=== PATIENT | male | born 1965 | race Caucasian/White ===

== ENCOUNTER 2017-07-18 13:06 | Day surgery (SDC) | payer OTHER ==
[2017-07-14 18:01] VITALS: BMI 31.0
[~2017-07-18 13:06] MED LIST: LACTATED RINGERS 1,000 ML IV SCH
[2017-07-18 13:24] VITALS: TEMP 97
[2017-07-18] MEDS ORDERED: LIDOCAINE 1% 20 ML VIAL (10MG/ML) FOR IV START INTRADERMA ONE (13:30)
[2017-07-18] MEDS ORDERED: PROPOFOL 10 MG/ML 20 ML VIAL IV ONE (14:27)
--- NOTE | 2017-07-18 14:54 | P.PCN ---
Date of Procedure: 07/18/17 Procedure(s) Performed: Procedure: Colonoscopy and polypectomy. Preoperative diagnosis: Screening for neoplasia. Postoperative diagnosis: Small cecal polyp snared but no large polyps or cancer. Preparation: HalfLytely prep. Sedation: Was provided by anesthesia. Brief clinical history: The patient is a 52-year-old male who is referred for this evaluation for screening for neoplasia age being his risk factor. There is no family history of colon cancer. The patient has no abdominal complaints, bleeding or anemia. This would be his first colonoscopy. Procedure: With the patient on his left lateral decubitus position and after informed consent and adequate sedation, the perianal area was inspected and it did not show any fissures or fistulas. There were no masses felt on digital rectal examination. The Olympus CFQ 160L video colonoscope was then inserted in the rectum in the usual fashion and advanced to the cecum. There was a small polyp in the cecum which I snared and retrieved by suction, otherwise, the exam was normal with no other polyps or tumors or any obvious diverticular disease or other pathology. I retroflexed the endoscope in the rectum before the endoscope was withdrawn. The patient tolerated the procedure well. Plan: The patient was reassured. He will follow up with you as planned and I recommended repeat exam in 5 years.
[2017-07-18 14:55] VITALS: RESP 18
[2017-07-18 15:28] VITALS: BP 142/84; PULSE 56
== END 2017-07-18 15:32 | disposition home or self-care (01) ==
LOC: ORWHC2ENDO 13:06
DX: Z12.11 Encounter for screening for malignant neoplasm of colon (principal); K63.5 Polyp of colon
CPT/HCPCS: 88305; 45385; J2704

== ENCOUNTER → 2020-11-28 | Outpatient (CLI) | payer OTHER ==
--- NOTE | 2020-11-28 23:39 | MR ---
EXAMINATION TYPE: MR shoulder RT wo con DATE OF EXAM: 11/28/2020 COMPARISON: None HISTORY: Rt shoulder pain and numbness in fingers x8 months Multiplanar multiecho imaging of the right shoulder was performed without contrast. Subscapularis tendon is intact. Biceps tendon appears normal. There is minor spurring at the anterior glenoid labrum. Posterior labrum appears intact. There is moderate spurring at the AC joint with todd e edema and fluid accumulation in the joint space. There is mild impingement upon the supraspinatus m uscle. There is some increased signal within the supraspinatus tendon over the greater tuberosity of the hum erus. I see no definite full-thickness tear. There is no retraction. IMPRESSION: There is increased signal within the supraspinatus tendon over the humeral head and greater tuberosit y consistent with tendinitis. No evidence of full-thickness tear. Small degenerative cysts in the greater tuberosity of the humerus. No fracture. Spurring and edema at the AC joint with subacromial impingement.
== END | disposition home or self-care (01) ==
LOC: RADMRIMAIN 20:36
PROVIDERS: ATTEND Family Medicine
DX: M25.811 Other specified joint disorders, right shoulder (principal); M79.89 Other specified soft tissue disorders